=== PATIENT | male | born 1985 | race Caucasian/White ===

== ENCOUNTER 2023-11-06 20:57 | Emergency (ER) | payer BC ==
[2023-11-06 21:08] VITALS: RESP 16; TEMP 98.3; O2SAT 97
[2023-11-06 21:37] LABS: Appearance Clear (Clear); Bacteria None Seen /HPF (None Seen); Bilirubin Small (Negative); Blood Negative (Negative); Epithelial Cells None Seen /HPF (None Seen); Glucose, Urine Negative (Negative); Ketones 15 (Negative); Leukocyte Esterase Negative (Negative); Nitrite Negative (Negative); Ph 5.5 (4.6-8.0); Protein,Urine Dip Trace (Negative); Specific Gravity >=1.030 (1.005-1.030); WBC 0-2 /HPF (0-5)
[2023-11-06 21:38] LABS: ADD URINE CULTURE? NO (NO)
--- NOTE | 2023-11-06 22:36 | ERPHSYRPT ---
- History of Present Illness Time Seen by Provider: 11/06/23 21:01 Source: patient Exam Limitations: no limitations Patient Subjective Stated Complaint: swelling to left testicle Triage Nursing Assessment: Pt ambulated into ER without diff, pt is alert and oriented x4, pleasant and cooperative. Pt c/o left testicle swelling. Pt has had this swelling x4 weeks but saw Dr. Cueva at [facility] regarding this. An US was performed at [facility]. Pt was started on an antibiotic at that time and the swelling did not increase but also did not decrease. Since being off the antibiotic x1 week, the swelling has started to increase. Pt denies any pain, only has a hindrance of sitting on the testicle or rolling over on it. Left testicle is large in size. Physician History: 38-year-old male presented in the ER with chief complaint of left testicular swelling. Is been there for the last 3 to 4 weeks. Patient was evaluated at [facility] ER with an ultrasound showing some hydrocele, was given antibiotic and it did not progress but he finished antibiotics recently and now has a marked increase in the size of hydrocele causing some pressure in the left testicle area and having some trouble walking. He denies any pain. No difficulty urination. No fever or chills reported. Denies any history of STDs. Allergies/Adverse Reactions: No Known Drug Allergies Allergy (Unverified 11/06/23 21:18) Home Medications: No Reportable Medications [No Reported Medications] 11/06/23 [History] Hx Tetanus, Diphtheria Vaccination/Date Given: Yes Hx Influenza Vaccination/Date Given: No Hx Pneumococcal Vaccination/Date Given: No Immunizations Up to Date: No Travel Risk - International Travel Have you traveled outside of the country in past 3 weeks: No - Coronavirus Screening Are you exhibiting any of the following symptoms?: No Close contact with a COVID-19 positive Pt in past 14-21 Days: No - Vaccine Status Have you recieved a Covid-19 vaccination: Yes Hand Tennis [employer]: Moderna - Vaccination Dates Date of 2cond Vaccination (if applicable): . - Past Medical History Pertinent Past Medical History: No Other Medical History: stitches from a dog bite - Past Surgical History Past Surgical History: Yes Other Surgical History: laser surgery to ingrown toenail - Social History Smoking Status: Former smoker Exposure to second hand smoke: No Drug Use: marijuana Patient Lives Alone: No - Review of Systems Constitutional: No Symptoms Ears, Nose, & Throat: No Symptoms Respiratory: No Symptoms Cardiac: No Symptoms Abdominal/Gastrointestinal: No Symptoms Genitourinary Symptoms: No Symptoms Musculoskeletal: No Symptoms Skin: No Symptoms Neurological: No Symptoms Endocrine: No Symptoms Hematologic/Lymphatic: No Symptoms - Nursing Vital Signs Nursing Vital Signs: Initial Vital Signs Temperature 98.3 F 11/06/23 21:06 Pulse Rate 88 11/06/23 21:06 Respiratory Rate 16 11/06/23 21:06 Blood Pressure 144/98 11/06/23 21:06 O2 Sat by Pulse Oximetry 97 11/06/23 21:06 Pain Scale Pain Intensity 0 - Physical Exam General Appearance: no apparent distress Eye Exam: PERRL/EOMI Neck Exam: normal inspection, full range of motion Respiratory Exam: normal breath sounds, lungs clear Cardiovascular Exam: regular rate/rhythm, normal heart sounds Gastrointestinal/Abdomen Exam: soft, normal bowel sounds, No tenderness Male Genital Exam: normal genitalia, hydrocele, scrotal swellling (Left side), No epididymal tenderness, No erythema, No inguinal tenderness, No testicular tenderness (L) Back Exam: normal inspection Extremity Exam: normal inspection, normal range of motion Neurologic Exam: alert, oriented x 3, cooperative Skin Exam: normal color SpO2 Interpretation: normal SpO2: 97 O2 Delivery: Room Air Ordered Tests: Active Orders 24 hr Category Date Time Status IV Insertion STAT Care 11/06/23 22:30 Active TESTICLE [US] Stat Exams 11/06/23 22:20 Taken UA W/RFX UR CULTURE Stat Lab 11/06/23 21:20 Completed Lab/Rad Data: Laboratory Results 11/06/23 Range/Units 21:20 Urine Color Dark Yellow (Yellow) Urine Appearance Clear (Clear) Urine pH 5.5 (4.6-8.0) Ur Specific Broadbent >=1.030 A (1.005-1.030) Urine Protein Trace A (Negative) Urine Glucose (UA) Negative (Negative) mg/dL Urine Ketones 15 A (Negative) Urine Blood Negative (Negative) Urine Nitrite Negative (Negative) Urine Bilirubin Small A (Negative) Urine Urobilinogen 1.0 A (0.2) mg/dL Ur Leukocyte Esterase Negative (Negative) U Hyaline Cast (Auto) 3-5 A (0-2) /LPF Urine Microscopic RBC 3-5 (0-5) /HPF Urine Microscopic WBC 0-2 (0-5) /HPF Ur Epithelial Cells None Seen (None Seen) /HPF Urine Bacteria None Seen (None Seen) /HPF Urine Culture Reflexed NO (NO) - Progress Progress: unchanged Progress Note: 11/06/23 22:37 38-year-old is evaluated in the ER for left testicular/scrotal swelling. Patient had ultrasound at [facility] showing hydrocele. Has no pain. Left testicle about the size of a tennis ball. Not separately palpable. No epididymal tenderness. No cord tenderness. No UTI. Ultrasound showed large hydrocele and not testicular mass, torsion or epididymal inflammation/increased flow preliminary report, official report is pending. I believe patient has hydrocele, recommended scrotal support and outpatient urology follow-up. Discussed signs symptoms of worsening needing return to ER which he seems understanding. Stable for discharge. 11/06/23 22:38 Counseled pt/family regarding: lab results, diagnosis, rad results - Departure Departure Disposition: Home Clinical Impression: Hydrocele of testis Condition: Stable Critical Care Time: No Referrals: DOCTOR,NO FAMILY [Primary Care Provider] - Follow up/PCP as directed DANIELA MORE [COURTESY STAFF] - Follow up/PCP as directed (Call for appointment) Instructions: Hydrocele/Varicocele (DC) Additional Instructions: Take Tylenol/ibuprofen as needed for pain. Use scrotal support. Follow-up with urology for reevaluation. Return to ER for increasing swelling, pain, fever chills or difficulty urination etc.
[2023-11-06 22:44] VITALS: BP 117/76; PULSE 75
--- NOTE | 2023-11-07 09:12 | XRAY ---
Indication: Left scrotal pain and swelling. Two-dimensional testicular sonogram performed. Comparison: None Both testicles are homogeneous in echogenicity. Right testicle measures 4.1 x 2.0 x 2.7 cm and left measures 4.8 x 2.3 x 2.3 cm. Color perfusion present bilaterally, increased on the right favoring orchitis. Large left-sided hydrocele. No suspicious extratesticular mass. Impression: 1. Large left scrotal hydrocele. No clear etiology. 2. Right testicle hyperemic color flow right favoring orchitis. Comment: Preliminary report was given.
== END 2023-11-06 22:50 | disposition home or self-care (01) ==
LOC: ED 20:57
DX: N43.3 Hydrocele, unspecified (principal)
CPT/HCPCS: 36000; 76870; 81001; 99283